=== PATIENT | male | born 2000 | race Two or more races ===

== ENCOUNTER 2025-01-24 12:52 | Emergency (ER) | payer SELFPAY ==
[2025-01-24 13:33] VITALS: BP 131/80; PULSE 71; RESP 22; TEMP 36.9; O2SAT 96
[2025-01-24] MEDS: AMOXICILLIN/POT CLAV 875 TABLET 1 TAB PO (13:55)
[2025-01-24] MEDS: KETOROLAC INJ 60 MG/2 ML VIAL IM (13:55)
[2025-01-24] MEDS: ACETAMINOPHEN 500 MG TABLET 1000 MG PO (13:56)
[2025-01-24] MEDS: ONDANSETRON ODT 4 MG TABRAP PO (13:56)
--- NOTE | 2025-01-24 14:25 | EDNOTE_ITS ---
<Statement entered by Lizzette López MD - 02/06/25 14:46> As co-signing physician, I was present and available for consult prn. I concur with the plan and care as documented by the midlevel provider. ED Ear RME/HPI General Chief complaint: Ear Stated complaint: RIGHT EAR PAIN/PRESSURE FOR THE PAST 6 HOURS Time Seen by Provider: 01/24/25 13:23 Arrival date/time: 01/24/25 12:52 This is a 24-year-old male that comes into the emergency room with complaints of right ear pain for the past 6 hours. Patient denies any fever, chills, or any other symptoms. Related Data Previous Rx's ?Medication ?Instructions ?Recorded amoxicillin 875 mg-potassium 1 tab PO Q12H 10 days #20 tabs 01/24/25 clavulanate 125 mg tablet ibuprofen 800 mg tablet 800 mg PO Q6H PRN pain #14 t abs 01/24/25 Allergies Allergy/AdvReac Type Severity Reaction Status Date / Time No Known Allergies Allergy Verified 01/24/25 12:56 Review of Systems Review of Systems Systems Reviewed: All systems reviewed, normal except as documented Past Medical History Past Medical History Comments PMH COMMENT: Denies ED Exam Narrative Physical exam: VITAL SIGNS: Reviewed. GENERAL APPEARANCE: Alert and interactive, follows commands, no acute distress HEAD AND FACE: Non-traumatic. ENT: PERRL, conjuctiva pink and clear, eyelid no trauma, Mucous membrane moist. Right TM erythemic bulging NECK: Supple, nontender, no nuchal rigidity. CHEST: No tenderness, no crepitus, no paradoxical movement, no retractions. LUNGS: breathing even and unlabored HEART: Regular rate, cap refill less than 2 seconds ABDOMEN: Soft, nondistended, no guarding, nontender, no rebound, no masses, NEUROLOGICAL: Gross motor function intact sensory function intact, Appropriate for age. MUSCULOSKELETAL: low back nontender, full range of motion. no midline tenderness, no meningismus, no step offs EXTREMITIES: No redness no swelling no skin breakdown on bilateral foot and leg. Distal neurovascular status intact bilateral foot SKIN: Color pink, dry, no rash, no lacerations, no abrasions, no contusions. Course Quality Measures none Orders Category Date Time Status Acetaminophen Tab [Tylenol ES Tab] Med 01/24/25 13:42 Discontinued 1,000 mg PO X1 ONE Amoxicillin/Pot Clav 875 [Augmentin 875] Med 01/24/25 13:42 Discontinued 1 tab PO X1 ONE Ketorolac Inj [Toradol Inj] Med 01/24/25 13:42 Discontinued 60 mg IM X1 ONE Ondansetron Odt [Zofran Odt] Med 01/24/25 13:42 Discontinued 4 mg PO X1 ONE Vital Signs Vital signs: Vital Signs Temperature 98.5 F 01/24/25 13:33 Pulse Rate 71 01/24/25 13:33 Respiratory Rate 22 H 01/24/25 13:33 Blood Pressure 131/80 H 01/24/25 13:33 Pulse Oximetry (%) 96 01/24/25 13:33 Oxygen Delivery Method Room Air 01/24/25 13:33 Ear MDM Narrative MDM Narrative:: Will treat patient for otitis media in the right ear. Patient instructed to make sure he follows up with primary provider in 1 to 2 days. [place] to the emergency room symptoms change or worsen. Patient was having a lot of ear pain so I gave him Tylenol and Toradol. Patient feels better. Will discharge patient home and he verbalized understanding to make sure he follows up with primary provider in 1 to 2 days. Dragon dictation: Although this document has been carefully reviewed, there may still be some phonetic and other typographical errors. These errors are purely grammatical due to imperfections in the software program and should not be construed in any way to compromise the substance of the patient's medical care during this visit. Patient data External records reviewed:: [facility] previous records Clinical information provided by:: patient Social determinants that could affect healthcare access:: none Patient has the following chronic illnesses:: None How is presenting disease/condition affected by chronic disease/condition?: no chronic disease Evaluation data The following diagnostics were reviewed and interpreted by me:: other (specify) (None) Lab and/or radiology exams considered but not ordered:: none Interpretation Summary: See note Medications / Prescriptions Medications or Prescriptions considered but not ordered:: No Medication administrations:: Medication Administration History Discontinued Medications Acetaminophen (Acetaminophen 500 Mg Tablet) 1,000 mg PO X1 ONE Stop: 01/24/25 13:43 Last Admin: 01/24/25 13:56 Dose: 1,000 mg Documented By: OA Amoxicillin/Clavulanate Potassium (Amoxicillin/Pot Clav 875 Tablet) 1 tab PO X1 ONE Stop: 01/24/25 13:43 Last Admin: 01/24/25 13:55 Dose: 1 tab Documented By: CONCEPCION Ketorolac Tromethamine (Ketorolac Inj 60 Mg/2 Ml Vial) 60 mg IM X1 ONE Stop: 01/24/25 13:43 Last Admin: 01/24/25 13:55 Dose: 60 mg Documented By: OA Ondansetron HCl (Ondansetron Odt 4 Mg Tabrap) 4 mg PO X1 ONE; Protocol Stop: 01/24/25 13:43 Last Admin: 01/24/25 13:56 Dose: 4 mg Documented By: OA See MAR Consultations Consultation(s) initiated? (list below): No Diagnosis Most likely diagnosis given after review of the tests above:: Otitis media Admission Indicated Admission indicated?: not indicated Admission Request Was there a request for admission?: No Disposition Plan Disposition Plan: Discharge Discharge Attestation Discharge Attestation: The patient and all family members were given an opportunity to ask questions and understood the discharge instructions. Discharge instructions specifically effects, indications for sooner follow up or return to the emergency department, and the expected course of current diagnosis. Patient condition: Stable Discharge Plan Plan Patient Disposition: HOME (Self Care) Patient condition on transfer: Stable Prescriptions/Referrals Prescriptions/Med Rec: New amoxicillin-pot clavulanate 875-125 mg tablet 1 tab PO Q12H 10 Days Qty: 20 0RF ibuprofen 800 mg tablet 800 mg PO Q6H PRN (Reason: pain) Qty: 14 0RF Problem List Clinical Impression: Otitis media Patient/Caregiver Discharge Instructions Discharge Activity: activity as tolerated Education Materials: ED Otitis Media Antibiotic ... Additional Instructions: Follow up with primary provider in 1-2 days. Come back to ED if symptoms change or worsen Print Language: Sammarinese Stand Alone Forms: [employer] Award Info., Patient Portal Info Letter PA/ADDICTION SOCIAL WORKER Supervising Physician PA/ROMAN Supervising Physician: lisa
== END 2025-01-24 14:58 | disposition home or self-care (01) ==
LOC: SERX 14:33
PROVIDERS: Emergency Provider Emergency Medicine
DX: H66.91 Otitis media, unspecified, right ear (principal)
CPT/HCPCS: 96372; 99283; J1885; Q0162; A9270